=== PATIENT | female | born 1955 | race Caucasian/White ===

== ENCOUNTER → 2019-10-04 | Outpatient (CLI) | payer BC | LOC: MC.RAD 09:08 | DX: Z00.00 Encounter for general adult medical examination without abnormal findings (principal); Z12.31 Encounter for screening mammogram for malignant neoplasm of breast ==

== ENCOUNTER 2020-03-16 08:12 | Inpatient (IN) | payer BC ==
[~2020-03-16] VITALS: Ht 167.6 cm; Wt 101.6 kg
[2020-03-16] VITALS (11 sets, daily range): BP systolic 128–153; BP diastolic 64–84; PULSE 63–82; TEMP 97.8–98.6
[2020-03-16] MEDS ORDERED: MOBIC15 MG PO (08:29)
[2020-03-16] MEDS ORDERED: ZYRTEC ALLERGY10 MG PO (08:35)
[2020-03-16] MEDS ORDERED: MULTI VITAMINS1 TAB PO (08:36)
[2020-03-16 09:11] LABS: BASO % 0.2 % (0.0-2.0); EOS % 0.2 % (0-4.0); GRAN # 14.1 (1.4-6.5); GRAN % 86.2 % (42.2-75.2); HEMOGLOBIN 13.4 g/dl (12.5-16.0); LYMPH # 1.3 (1.2-3.4); LYMPH % 8.2 % (20.0-51.0); MEAN CELL VOLUME 91 fl (80.0-100.0); MEAN CORPUSCULAR HEMOGLOBIN 30 pg (27.0-31.0); MEAN CORPUSCULAR HGB CONC 33 g/dl (33.0-37.0); MEAN PLATELET VOLUME 10.6 fl (7.4-10.4); MONO # 0.8 (0.1-0.6); MONO % 4.8 % (1.7-9.3); PLATELET COUNT 282 K/mm3 (130-400); RED BLOOD COUNT 4.51 M/mm3 (4.10-5.30); REDCELL DISTRIBUTION WIDTH-CV 13.8 % (11.5-14.5)
[2020-03-16 09:18] LABS: INR 1.1 (0.8-3.0); PROTHROMBIN TIME 12.3 SECONDS (9.7-12.8)
[2020-03-16 09:26] LABS: CALCIUM 9.5 mg/dL (8.4-10.2); CREATININE, serum 0.71 (0.52-1.25); POTASSIUM 4.1 mmol/L (3.4-5.0)
[2020-03-16 10:49] LABS: PH 6 (5-8); SQUAMOUS EPITHELIAL None Seen /hpf; URINE APPEARANCE Clear; URINE BACTERIA None Seen /hpf; URINE BILIRUBIN Negative (NEGATIVE); URINE BLOOD Negative (NEGATIVE); URINE COLOR Straw; URINE GLUCOSE Negative (NEGATIVE); URINE KETONE Negative (NEGATIVE); URINE LEUKOCYTE ESTERASE Negative (NEGATIVE); URINE NITRATE Negative (NEGATIVE); URINE PROTEIN(semi-quant) Negative (NEGATIVE); URINE RBC 0-2 /hpf; URINE UROBILINOGEN Negative (NEGATIVE)
--- NOTE | 2020-03-16 11:06 | NUR ---
Patient admitted to room 326 from the ER. Alert & oriented. 5 page, med rec & inital completed. I have spoke to both Jcoelyn GOFF & Heather GOFF, orders obtained. UA completed, EKG completed. Dilaudid for pain amagement. Scds ble & breanne to RLE. Anticiapting surgery this afternoon. SHe has spoken with her family.
[2020-03-16 11:43] LABS: COLLECTION METHOD CLEAN CATCH
--- NOTE | 2020-03-16 13:07 | NUR ---
Technical Communication Teacher met with patient to discuss discharge planning. Patient lives alone in [place] and is employed at [employer] in the [employer]. Patient sees SHELL Syed for primary care and obtains medications from [facility] with no difficulties. Patient does not use any DME and reports she is normally independent with ADLS. Patient does state she struggles with hip pain. Patient reports she fell outside this morning and came to ED via EMS. Patient to have surgery this afternoon and is not sure what her discharge plan is at this time. Patient states she does have family that can come stay with her if needed. Patient has three children. Patient's son John (ph#[phone]) lives in [place], her son Gasper (ph#[phone]) lives in [place], and her daughter oJ (ph#[phone]) lives in [place]. Patient does not have Advance Directives but wanted to complete DPOA-HC document. SW assisted patient in filling out form. Patient wanted to designate her sons, John and Gasper. Patient verbalized understanding of what she is signing. CLAIR and MARIELY Ross provided witness signature. SW provided original and copies to patient then placed copy in patient's chart. SW to continue to monitor for discharge needs.
--- NOTE | 2020-03-16 13:33 | NUR ---
Patient to the OR with Jaylan mancilla. Plastic Printer assisted patient with hygiene prior to OR. Iv dilaudid releived her pain. Patient used bedpan prior to the OR, did not want antonio at this time.
--- NOTE | 2020-03-16 20:23 | NUR ---
Patient has done well postop. Vitals stable on room air. Left hip dressing clean dry & intact. gauze & tegaderm. Ivf per orders. Teds & scds ble. SHe tolerated dinner. Bedside report to Amelia Jasso
--- NOTE | 2020-03-16 21:15 | NUR ---
Received report from WESLEY Hoffman. Pt currently lying in bed. Pt did state that she was having pain. Pt was given 1 Liberty tab. When reassessment was done pt stated that her pain had increased from a 7 up to a 8. Pt was given 1 more tab at this time. Pt also was able to take her night medications with no problems. Pt has her call light within reach and her bed is in lowest position.
--- NOTE | 2020-03-16 22:00 | NUR ---
Pt was in quite a bit of pain. Pt is able to move her legs now. Pt is currently resting in bed. Ice was applied to her left hip. Her left leg is elevated on a pillow. Pt has her call light within reach and her bed is in lowest position.
[2020-03-17] VITALS: BP 144/69; PULSE 77; TEMP 98.3
[2020-03-17 04:21] VITALS: BP 117/57; PULSE 74; TEMP 98.3
--- NOTE | 2020-03-17 06:26 | NUR ---
Pt currently sleeping in bed. Pt marisela jade was empited this morning and fresh water was provided. Pt has her call light within reach and her bed is in lowest position.
--- NOTE | 2020-03-17 07:34 | NUR ---
Reported off to WESLEY Rubio. Pt is currently lying in bed. Pt has his call light within reach and his bed is in lowest position.
[2020-03-17 08:30] VITALS: BP 149/74; PULSE 77; TEMP 98.3
[2020-03-17 09:18] LABS: HEMOGLOBIN 11.9 g/dl (12.5-16.0)
[2020-03-17 09:22] LABS: HEMATOCRIT 36.2 % (37.0-47.0)
[2020-03-17 11:15] VITALS: BP 132/82; PULSE 67; TEMP 97.3
--- NOTE | 2020-03-17 14:11 | NUR ---
SW update: Sent IPR screen. Screen may be conducted 03/18/2020 and DC on 03/19/2020 if accepted to [facility]/ Insurance [employer] unable to obtain auth on weekend.
[2020-03-17 16:50] VITALS: BP 134/69; PULSE 70; TEMP 97.6
--- NOTE | 2020-03-17 18:00 | NUR ---
Minimal complaints of left hip pain. [place] and scheduled Toradol given. Ambulatory with walker and standby assist. Physical therapy worked with patient.
--- NOTE | 2020-03-17 20:00 | NUR ---
At time of assessment, patient is sitting in chair. She ambulates with walker and gaitbelt to the bathroom and expresses minimal pain in her hip at this time. She voids clear, yellow urine. Heart sounds are normal/regular, lungs are clear, pulses 2/2, no edema present. Left hip dressing is CDI. Incentive spirometer utilized up to 2500 x2 repitions. Will continue to monitor.
[2020-03-17 23:00] VITALS: BP 142/58; PULSE 77; TEMP 97.9
[2020-03-18 04:00] VITALS: BP 132/70; PULSE 72; TEMP 97.7
--- NOTE | 2020-03-18 06:35 | NUR ---
Patient has had a restful night and pain has been managed with PO pain medication and Toradol. Patient has ambulated well to and from the bathroom with walker and gaitbelt. No new concerns at this time.
[2020-03-18 07:25] LABS: HEMOGLOBIN 11.8 g/dl (12.5-16.0)
[2020-03-18 07:30] LABS: HEMATOCRIT 35.9 % (37.0-47.0)
[2020-03-18 07:35] VITALS: BP 124/66; PULSE 78; TEMP 97.7
[2020-03-18 07:35] LABS: CALCIUM 8.9 mg/dL (8.4-10.2); CREATININE, serum 0.73 (0.52-1.25); POTASSIUM 4.4 mmol/L (3.4-5.0)
[2020-03-18 09:24] LABS: BASO % 0.3 % (0.0-2.0); EOS # 0.4 (0.0-0.7); EOS % 4.1 % (0-4.0); GRAN # 5.6 (1.4-6.5); GRAN % 65.2 % (42.2-75.2); HEMOGLOBIN 11.8 g/dl (12.5-16.0); LYMPH # 1.8 (1.2-3.4); LYMPH % 20.4 % (20.0-51.0); MEAN CELL VOLUME 91 fl (80.0-100.0); MEAN CORPUSCULAR HEMOGLOBIN 30 pg (27.0-31.0); MEAN CORPUSCULAR HGB CONC 33 g/dl (33.0-37.0); MEAN PLATELET VOLUME 11.4 fl (7.4-10.4); MONO # 0.9 (0.1-0.6); MONO % 9.9 % (1.7-9.3); PLATELET COUNT 223 K/mm3 (130-400); RED BLOOD COUNT 3.94 M/mm3 (4.10-5.30); REDCELL DISTRIBUTION WIDTH-CV 13.8 % (11.5-14.5)
[2020-03-18 09:28] LABS: HEMATOCRIT 35.9 % (37.0-47.0)
[2020-03-18 12:35] VITALS: BP 162/70; PULSE 82
--- NOTE | 2020-03-18 14:14 | NUR ---
SW spoke with [facility] Rep who indicated that the patient could be accepted into [facility] on Thursday.
[2020-03-18 16:00] VITALS: BP 140/74; PULSE 70; TEMP 98.4
--- NOTE | 2020-03-18 18:00 | NUR ---
Stated slept better last night. Napped at times in recliner chair today. Ambulates well with walker in room and halls with standby assist. [place] prn for left hip pain. Ice pack to hip.
[2020-03-18 20:00] VITALS: BP 157/77; PULSE 79; TEMP 97.5
--- NOTE | 2020-03-18 20:00 | NUR ---
At time of assessment, patient is alert and oriented, heart sounds normal/regular, lungs clear, no edema, pain level is 5/10. PO [place] x1 administered for this. Patient ambulates well with walker and gaitbelt. She has not had a bowel movement today.
[2020-03-19] VITALS: BP 152/75; PULSE 80; TEMP 97.9
[2020-03-19 04:00] VITALS: BP 160/71; PULSE 76; TEMP 97.5
[2020-03-19 07:23] VITALS: BP 158/71; PULSE 84; TEMP 97.9
--- NOTE | 2020-03-19 08:51 | NUR ---
PT UP TO RECLINER FOR BREAKFAST. AM MEDS GIVEN ORDERED. PT A/O X3 DENIES NEEDS. AMBULATES WITH STEADY GAIT WITH THERAPY.
[2020-03-19 11:30] VITALS: BP 158/80; PULSE 83; TEMP 98.3
[2020-03-19] MEDS ORDERED: ASPIRIN 32325 MG/TAB PO (11:49)
[2020-03-19] MEDS ORDERED: TYLENOL 325MG325 MG PO (11:51)
[2020-03-19] MEDS ORDERED: NORCO 325 MG-7.1 TAB PO (11:53)
[2020-03-19] MEDS ORDERED: SENNA-S 50 MG-81 TAB PO (11:53)
--- NOTE | 2020-03-19 12:20 | NUR ---
PT TRANSFERED TO [facility] RM 336 AT THIS TIME.
--- NOTE | 2020-03-19 15:21 | NUR ---
The patient discharged to [place] [facility] today, 03/19. There are no additional needs at this time.
== END 2020-03-19 12:20 | DRG 482 ==
LOC: COL.ER 08:12 → SURG 08:48
PROVIDERS: Emergency Medicine; Orthopaedic Surgery; Physician Assistant; ADMIT Internal Medicine
PROC: 0QS734Z Reposition Left Upper Femur with Internal Fixation Device, Percutaneous Approach (ICD-10-PCS; principal; 2020-03-16 14:00)
DX: S72.142A Displaced intertrochanteric fracture of left femur, initial encounter for closed fracture (principal); K59.03 Drug induced constipation; T40.2X5A Adverse effect of other opioids, initial encounter; D72.829 Elevated white blood cell count, unspecified; R03.0 Elevated blood-pressure reading, without diagnosis of hypertension; K21.9 Gastro-esophageal reflux disease without esophagitis; M16.12 Unilateral primary osteoarthritis, left hip; Z88.5 Allergy status to narcotic agent; W01.0XXA Fall on same level from slipping, tripping and stumbling without subsequent striking against object, initial encounter
CPT/HCPCS: 99222-AI; 99231-AI; 99239; A4314; A9284; C1713; J0690; J1170; J1885; J2250; J2704; J3010

== ENCOUNTER 2020-03-19 11:29 | Inpatient (IN) | payer BC ==
[~2020-03-19] VITALS: Ht 167.6 cm; Wt 101.7 kg
[~2020-03-19 11:29] MED LIST: MOBIC15 MG PO; MULTI VITAMINS1 TAB PO; ZYRTEC ALLERGY10 MG PO
[2020-03-19] MEDS ORDERED: ASPIRIN 32325 MG/TAB PO (11:49)
[2020-03-19] MEDS ORDERED: TYLENOL 325MG325 MG PO (11:51)
[2020-03-19] MEDS ORDERED: SENNA-S 50 MG-81 TAB PO (11:53)
[2020-03-19] MEDS ORDERED: NORCO 325 MG-7.1 TAB PO (11:53)
--- NOTE | 2020-03-19 12:53 | NUR ---
PATIENT TO ROOM 336 FOR CONTINUED REHAB. PT TOLERATING ACTIVITY WELL.
[2020-03-19 15:20] VITALS: BP 151/74; PULSE 74; TEMP 97.7
--- NOTE | 2020-03-19 16:03 | NUR ---
REPORT TO FATIMAH OLSON.
--- NOTE | 2020-03-19 16:10 | NUR ---
Patient sitting up in recliner, Denies pain at this time. Denies further needs at this time.
--- NOTE | 2020-03-19 19:02 | NUR ---
Patient has done well throughout the afternoon. Minimal needs. Reported off to career development associate.
[2020-03-20 04:25] VITALS: BP 148/72; PULSE 78; TEMP 97.6
--- NOTE | 2020-03-20 06:30 | NUR ---
Patient was sleeping most the night. Minimal complaints of pain. Did not want pain medications during the night. She was up several times to the restroom. Patient gets around with minimal assist. No complaints of nausea. She gets around with a walker. No other changes at this time. Call light within reach.
--- NOTE | 2020-03-20 08:10 | NUR ---
PATIENT SITTING UP IN THE BEDSIDE CHAIR. PATIENT IS A&OX4. VSS. BOWEL SOUNDS ACTIVE ALL FOUR QUADRANTS. PATIENT TOLERATING DIET WITHOUT ANY COMPLAINTS OF N/V. POSITIVE PEDAL PULSES EQUAL BILATERALLY. CAP REFILL <3 SECONDS. CMS INTACT. LEFT HIP DRESSED WITH GAUZE AND TEGADERM AND IS CD&I. PATIENT GIVEN PRN PO TYLENOL AT THIS TIME FOR PAIN. WILL CONTINUE TO MONITOR.
--- NOTE | 2020-03-20 10:26 | NUR ---
The patient is new to [facility]. SW met with the patient to complete initial intake. The patient lives alone in [facility]. The patient does not have DME and is independent with ADLs. The patient's PCP is SHELL Syed and patient receives medications from [facility]. The patient does not have advanced directives in the EMR but states she has completed them. Her DPOA-HC designates her sons John and Gasper. CLAIR will continue to monitor to ensure a safe discharge.
--- NOTE | 2020-03-20 15:44 | NUR ---
PATIENT GIVEN PRN PO DOSE OF TYLENOL AT THIS TIME FOR PAIN RATED A 2/10 ON A 0-10 SCALE IN THE LEFT HIP. PATIENT DESCRIBES THE PAIN AN ACHING PAIN. PATIENT DENIES ANY OTHER NEEDS AT THIS TIME.
[2020-03-20 16:48] VITALS: BP 127/64; PULSE 73; TEMP 98.1
--- NOTE | 2020-03-20 19:31 | NUR ---
REPORT GIVEN TO WESLEY FLORES.
--- NOTE | 2020-03-21 03:18 | NUR ---
Patient has been resting in bed this shift. Patient is able to handle own toileting needs. Is mod I in the room. No complaints of pain this shift.
[2020-03-21 05:13] VITALS: BP 141/73; PULSE 78; TEMP 97.5
--- NOTE | 2020-03-21 09:23 | NUR ---
Patient resting in recliner getting ready to start OT this morning. Patient slept great last night. Left hip incision show no signs of infection such as redness or drainage. Dressing is clean dry and intact. Patient is independent in her room. Pain to left his is 2/10 at this time and given prn tylenol this morning. Will continue to monitor.
--- NOTE | 2020-03-21 12:46 | NUR ---
Patient independent in her room and is eating independently in her room following morning therapies.
[2020-03-21] MEDS ORDERED: NORCO 325 MG-51 TAB PO (13:43)
[2020-03-21 16:05] VITALS: BP 148/81; PULSE 77; TEMP 97.6
--- NOTE | 2020-03-21 16:25 | NUR ---
CLAIR met with the patient to present [facility] Team Conference notes. The patient is to tentativley discharge on , 03/21 with outpatient PT and a wheelchair. The patient states she will probably going to stay with her son in [place] and she will do her outpatient PT there. She chose [place] [facility]. CLAIR faxed HNP, Facesheet, PT notes to [facility]. Will continue to follow.
--- NOTE | 2020-03-21 18:55 | NUR ---
PATIENT UP IN CHAIR, UP INDEPENDENTLY IN ROOM WITH NO PROBLEMS OR CONCERNS, DURING CHANGE OF SHIFT REPORT FROM DAY SHIFT NURSE
--- NOTE | 2020-03-21 19:06 | NUR ---
Reported off to night nurse.
--- NOTE | 2020-03-22 01:00 | NUR ---
PATIENT SLEEPING DOES NOT AWAKEN WHEN DOOR TO ROOM IS OPENED BY STAFF. BREATHING NONLABORED AND EVEN. PATIENT UP INDEPENDENTLY IN ROOM WITH NO PROBLEMS.
[2020-03-22 05:52] VITALS: BP 127/67; PULSE 73; TEMP 97.6
--- NOTE | 2020-03-22 09:29 | NUR ---
CLAIR faxed walker order to [facility]. They will deliver the walker this AM.
--- NOTE | 2020-03-22 09:50 | NUR ---
Patient tolerated diet well this morning. Discussed discharge meds and what time to set up follow up appointments. Appointments have been made. She will see PCP Elba Torres at [facility] on 04/03/20 at 2:30 PM. Ortho appointment was already made and is on 04/26/20 at 10:45 AM. Dressing to right hip was changed this morning. No signs of redness or drainage to wound was observed. The dressing that was removed only had a few spots of dry dark blood on it. Area was redressed with gauze and tegaderm with patient tolerating well. Patient reported that she thought the Ramona 7.5 mg was too strong for her so she was ordered Ramona 5 mg for when she is home. Patient currently resting in recliner, call light in reach and is independent in her room.
--- NOTE | 2020-03-22 10:38 | NUR ---
Patient currently just waiting for her walker to arrive before she calls family to come pick her up to go home.
--- NOTE | 2020-03-22 12:44 | NUR ---
Patient Health Summary, Discharge Summary, and Home Meds printed and reviewed with patient. Stressed importance of follow up appointments. Patient will be getting outpatient PT, but will be selecting one that is closer to her relatives place and will call and set up those therapies her self. Belongings gathered by WESLEY/Tanya including glasses, clothes, shoes, dirty clothes from hamper, pink wallet, 4 earrings, 2 rings, one entry level assistant manager, phone and bath items. Patient transported via wheelchair by FRONT WORKER/Tammy and seatbelted for ride home with sister. Patient denied questions.
== END 2020-03-22 11:55 | disposition home or self-care (01) | DRG 561 ==
PROVIDERS: ADMIT Internal Medicine
DX: S72.142D Displaced intertrochanteric fracture of left femur, subsequent encounter for closed fracture with routine healing (principal); I10 Essential (primary) hypertension; D72.829 Elevated white blood cell count, unspecified; W18.39XD Other fall on same level, subsequent encounter; K59.00 Constipation, unspecified; Z79.82 Long term (current) use of aspirin; Z79.891 Long term (current) use of opiate analgesic; Z90.710 Acquired absence of both cervix and uterus; Z87.891 Personal history of nicotine dependence; Z88.5 Allergy status to narcotic agent
CPT/HCPCS: 99222-AI; 99232-AI; 99239

== ENCOUNTER → 2020-10-09 | Outpatient (CLI) | payer BC ==
[~2020-10-09] MED LIST changes: +ASPIRIN 32325 MG/TAB PO; +NORCO 325 MG-51 TAB PO; +NORCO 325 MG-7.1 TAB PO; +SENNA-S 50 MG-81 TAB PO; +TYLENOL 325MG325 MG PO
== END ==
LOC: MC.RAD 07:45
DX: Z12.31 Encounter for screening mammogram for malignant neoplasm of breast (principal)

== ENCOUNTER → 2021-12-23 | Outpatient (CLI) | payer BC | LOC: MC.RAD 12-06 08:30 | DX: Z12.31 Encounter for screening mammogram for malignant neoplasm of breast (principal) ==